=== PATIENT | male | born 1965 | race Two or more races ===

== ENCOUNTER 2022-03-25 16:34 | Emergency (ER) | payer OTHER ==
[~2022-03-25] VITALS: Ht 167.6 cm; Wt 97.1 kg
[2022-03-25] MEDS ORDERED: predniSONE 20 MG TABLET ONE (17:57)
[2022-03-25] MEDS ORDERED: diphenhydrAMINE HCL 50 MG CAPSULE ONE (17:57)
[2022-03-25] MEDS ORDERED: predniSONE 50 MG TABLET PO ONE (18:00)
[2022-03-25] MEDS ORDERED: diphenhydrAMINE HCL 25 MG CAPSULE PO ONE (18:00)
[2022-03-25] MEDS ORDERED: EPIN0.3P3 IM (19:11)
[2022-03-25] MEDS ORDERED: PRED20TA PO (19:12)
[2022-03-25 19:13] VITALS: BP 130/80
--- NOTE | 2022-03-25 19:19 | NUR ---
Patient discharged to home in stable condition. Written and verbal after care instructions given. Patient verbalizes understanding of instruction.
== END 2022-03-25 19:20 | disposition home or self-care (01) ==
LOC: ER 16:47
DX: T78.3XXA Angioneurotic edema, initial encounter (principal)
CPT/HCPCS: 99283; Q0163; J7512

== ENCOUNTER 2022-04-24 15:02 | Emergency (ER) | payer OTHER ==
[~2022-04-24] VITALS: Ht 170.2 cm; Wt 97.1 kg
[~2022-04-24 15:02] MED LIST: EPIN0.3P3 IM; PRED20TA PO
--- NOTE | 2022-04-24 15:02 | NUR ---
Received pt 56 yrs male came from home accampany by c/o LT KNEE PAIN AND SWALLEN FOR 2 DAYS dineses HX TRTAUMA
--- NOTE | 2022-04-24 15:15 | NUR ---
SEEN BY DR. ERNANDEZ
--- NOTE | 2022-04-24 15:45 | NUR ---
X RAY DONE AT BED SIDE
[2022-04-24] MEDS ORDERED: oxyCODONE/APAP (5/325 MG) 1 UDTAB TABLET ONE (15:56)
[2022-04-24] MEDS ORDERED: KETOROLAC TROMETHAMINE INJ 30 MG/ML VIAL ONE (15:56)
[2022-04-24] MEDS: KETOROLAC TROMETHAMINE INJ 60 MG/2 ML VIAL IM ONE (16:04)
[2022-04-24] MEDS: oxyCODONE/APAP (5/325 MG) 1 UDTAB TABLET PO ONE (16:05)
--- NOTE | 2022-04-24 16:30 | NUR ---
resting and comfortable
[2022-04-24] MEDS ORDERED: IBUP-1957 PO (16:39)
--- NOTE | 2022-04-24 17:17 | NUR ---
Patient discharged to home in stable condition. Written and verbal after care instructions given. Patient verbalizes understanding of instruction.
[2022-04-24 17:20] VITALS: BP 103/66
== END 2022-04-24 17:20 | disposition home or self-care (01) ==
LOC: ER 15:07
DX: M25.562 Pain in left knee (principal); Z79.899 Other long term (current) drug therapy
CPT/HCPCS: 99283; 96372; 73564; J1885

== ENCOUNTER 2022-05-29 08:47 | Emergency (ER) | payer OTHER ==
[~2022-05-29] VITALS: Ht 167.6 cm; Wt 9.1 kg
[~2022-05-29 08:47] MED LIST changes: +IBUP-1957 PO
--- NOTE | 2022-05-29 09:35 | NUR ---
BOAT FINISHER AT BEDSIDE FOR XRAY
--- NOTE | 2022-05-29 09:39 | NUR ---
IV LINE ESTABLISHED ON RAC #20, BLOOD DRAWN AND COLLECTED BY PHLEB AT BEDSIDE
[2022-05-29] MEDS: IV NS 0.9% 1,000 ML BAG IV ONE (09:41)
--- NOTE | 2022-05-29 09:41 | NUR ---
TECH AT BEDSIDE FOR EKG
[2022-05-29 09:51] LABS: BASOPHILS % (AUTO) 0.2 % (0.0-2.0); EOSINOPHILS % (AUTO) 0.1 % (0.0-6.0); HEMATOCRIT 45 % (39-51); HEMOGLOBIN 15.2 g/dL (13.5-17.5); LYMPHOCYTES # (AUTO) 0.6 K/uL (0.8-4.8); LYMPHOCYTES % (AUTO) 4.5 % (20.0-44.0); MEAN CORPUSCULAR HGB CONC 34 g/dl (31.0-36.0); MEAN CORPUSCULAR VOLUME 90 fL (80-96); MONOCYTES % (AUTO) 7.4 % (2.0-12.0); NEUTROPHILS # (AUTO) 11.7 K/uL (1.8-8.9); NEUTROPHILS % (AUTO) 87.8 % (43.0-81.0); PLATELET COUNT (AUTO) 281 K/uL (150-450); RED BLOOD CELL COUNT(AUTO) 4.99 MIL/uL (4.5-6.0); WHITE BLOOD COUNT (AUTO) 13.3 K/uL (4.3-11.0)
[2022-05-29 10:11] LABS: ALANINE AMINOTRANSFERASE 35 U/L (12-78); ALBUMIN 3.3 g/dL (3.4-5.0); ALKALINE PHOSPHATASE 84 U/L (46-116); ASPARTATE AMINOTRANSFERASE 20 U/L (15-37); BILIRUBIN,DIRECT 0.2 mg/dL (0.0-0.2); BILIRUBIN,TOTAL 1.1 mg/dL (0.2-1.0); CALCIUM, SERUM 9.3 mg/dL (8.5-10.1); CARBON DIOXIDE 28 mmol/L (21-32); CHLORIDE 106 mmol/L (98-107); GLUCOSE 111 mg/dL (74-106); POTASSIUM 3.7 mmol/L (3.5-5.1); SODIUM SERUM 138 mmol/L (136-145); TOTAL PROTEIN, SERUM 7.5 g/dL (6.4-8.2); UREA NITROGEN, BLOOD 9 mg/dL (7-18)
[2022-05-29] MEDS ORDERED: ACETAMINOPHEN ES 500 MG TABLET ONE (10:36)
[2022-05-29] MEDS: ACETAMINOPHEN ES 500 MG TABLET PO ONE (10:39)
[2022-05-29] MEDS ORDERED: IOHEXOL-350 100 ML VIAL IV ONE (11:19)
[2022-05-29] MEDS ORDERED: IV NS 0.9% 250 ML IV ONE (11:19)
--- NOTE | 2022-05-29 11:25 | NUR ---
PT TAKEN TO RADIOLOGY FOR CT
[2022-05-29] MEDS ORDERED: RIVA15TA PO (13:05)
[2022-05-29] MEDS ORDERED: GUAI-41 PO (13:06)
--- NOTE | 2022-05-29 13:17 | NUR ---
IV removed. Catheter intact and site benign. Pressure and 4x4 applied to site. No bleeding noted.
--- NOTE | 2022-05-29 13:17 | NUR ---
Patient discharged to home in stable condition. Written and verbal after care instructions given. Patient verbalizes understanding of instruction.
[2022-05-29 13:18] VITALS: BP 120/64
[2022-05-29 16:06] LABS: BAND % (MANUAL) 3 % (0.0-5.0); LYMPHOCYTES % (MANUAL) 7 % (16-48); MONOCYTES % (MANUAL) 5 % (0-11.0); NEUTROPHILS % (MANUAL) 85 (42-76)
== END 2022-05-29 13:24 | disposition home or self-care (01) ==
LOC: ER 08:56
DX: U07.1 COVID-19 (principal); I26.99 Other pulmonary embolism without acute cor pulmonale; Z79.899 Other long term (current) drug therapy
CPT/HCPCS: 99285; 96360; 71275; 71045; 93005; 85025; 80048; 80076; 85378; 36415; 84484 ×2; 83880; 85007; J7030; J7050; Q9967